=== PATIENT | female | born 1985 | race Caucasian/White ===

== ENCOUNTER → 2025-03-19 | Outpatient (BNVA) | payer BC, SELFPAY | END | disposition home or self-care (01) | PROVIDERS: PCP Family Medicine; Referring Provider Family Medicine; Visit Provider Urology | DX: N39.41 Urge incontinence (principal); R35.0 Frequency of micturition; Q61.5 Medullary cystic kidney | CPT/HCPCS: 81003; 99202; G0463 ==

== ENCOUNTER → 2025-04-08 | Outpatient (CLI) | payer BC, SELFPAY ==
--- NOTE | 2025-04-08 12:00 | XR_ITS ---
Examination: CT abdomen and pelvis without contrast. Coronal 3-D reconstructions. Sagittal 2-D reconstructions. Date and time of exam:April 08, 2025 1152 hours INDICATIONS: Generalized abdominal pain beginning 2 years ago CTDI: vol (mGy): 8.93 DLP: (mGycm): 486 Technique: Axial images of the abdomen have been obtained, 3 mm slice thickness Intravenous contrast material has not been administered. Low dose protocols were performed. One or more of the following dose reduction techniques were used; automated exposure control, adjustment of the mA and/or KV according to patient size, use of iterative reconstruction technique. Findings: No focal liver or splenic lesion No gallstones No pancreatic or adrenal mass Numerous bilateral renal calculi 1 mm, no hydronephrosis or ureteral calculi Aorta normal size Normal appendix No bowel obstruction No pelvic mass No bladder mass or bladder calculi Intact osseous structures IMPRESSION: Numerous small bilateral renal calculi, no hydronephrosis or ureteral calculi
== END | disposition home or self-care (01) ==
LOC: CCTX 11:29
PROVIDERS: PCP Family Medicine; Referring Provider Urology; Visit Provider Urology
DX: N20.0 Calculus of kidney (principal)
CPT/HCPCS: 74176

== ENCOUNTER → 2025-07-20 | Outpatient (BNVA) | payer BC, SELFPAY | END | disposition home or self-care (01) | PROVIDERS: PCP Family Medicine; Referring Provider Family Medicine; Visit Provider Urology Female Pelvic Medicine and Reconstructive Surgery | DX: N39.3 Stress incontinence (female) (male) (principal); N32.81 Overactive bladder; N81.6 Rectocele | CPT/HCPCS: 81003; 99212; G0463 ==